=== PATIENT | female | born 1965 | race African-American/Black ===

== ENCOUNTER 2017-04-12 11:02 | Inpatient (IN) | payer OTHER ==
[2017-04-12] MEDS ORDERED: FLU VACCINE QUAD 60 MCG/0.5 ML (MDV 17-18) IM ONE (11:45)
[2017-04-12] MEDS ORDERED: hydrOXYzine PAMOATE 50 MG CAPSULE (FP) PO PRN (12:31)
[2017-04-12] MEDS ORDERED: ACETAMINOPHEN 325 MG TABLET (FP) PO PRN (12:31)
[2017-04-12] MEDS ORDERED: MAGNESIUM CITRATE 300 ML BOTTLE PO PRN (12:31)
[2017-04-12] MEDS ORDERED: MAG HYDROX/AL HYDROX/SIMETH 30 ML UNIT-DOSE CUP PO PRN (12:31)
[2017-04-12] MEDS ORDERED: IBUPROFEN 400 MG TABLET (FP) PO PRN (12:31)
[2017-04-12] MEDS ORDERED: MAGNESIUM HYDROX 2400MG/30ML ORAL SUSPENSION 30 ML CUP PO PRN (12:31)
[2017-04-12] MEDS ORDERED: P-EPHED 60MG/TRIPROLIDI 2.5MG TABLET PO PRN (12:31)
[2017-04-12] MEDS ORDERED: LOPERAMIDE HCL 2 MG CAPSULE PO PRN (12:31)
[2017-04-12] MEDS ORDERED: guaiFENesin/D-METHORPHAN HB 10 ML UNIT-DOSE CUPS PO PRN (12:31)
[2017-04-12] MEDS ORDERED: MENTHOL/PHENOL 1 EACH UD MM PRN (12:31)
[2017-04-12] MEDS ORDERED: ALBUTEROL SO4 18 GM HFA INHALER IH PRN (12:32)
--- NOTE | 2017-04-12 12:35 | HP ---
JAI SCHAEFER Rehab Assess/Revision - Admission History Admitted to Rehab from: [facility] Date of Admission to Rehab: 04/12/17 - Vital signs Vital Signs: Vital Signs Period Temp Pulse Resp BP Sys/Hdz Pulse Ox Last 24 Hr 97.4 F 77 18 114/78 - Findings Detox History & Physical reviewed: Yes Concur with findings: Yes Comments/Additional Findings: for rehab as protocol Inpatient Rehab Admission - Initial Determination Are CD services needed?: Yes Free of communicable disease: Yes Not in need of hospitalization: Yes - Rehab Admission Criteria Previous failed treatment: Yes Poor recovery environment: Yes Comorbidities: Yes Patient is meeting Inpatient Rehab admission criteria:: Yes
[2017-04-12] MEDS: BUDESONIDE/FORMETEROL FUMARATE 160/4.5 mcg INHALER IH SCH (21:45)
[2017-04-12] MEDS: diphenhydrAMINE HCL 50 MG CAPSULE PO PRN (21:45)
[2017-04-12] MEDS: THIAMINE HCL 100 MG TABLET (FP) PO SCH (21:45)
[2017-04-12] MEDS: MONTELUKAST NA 10 MG TABLET PO SCH (21:46)
[2017-04-13] MEDS ORDERED: PT OWN MED DRAWER 7, Y5N ONE ×2 (09:01→22:30)
[2017-04-13] MEDS: PRENATAL VITAMINS W/ FOLIC ACID TABLET (FP) PO SCH (10:08)
[2017-04-13] MEDS: BUDESONIDE/FORMETEROL FUMARATE 160/4.5 mcg INHALER IH SCH ×2 (10:08→21:57)
[2017-04-13 12:21] LABS: HIV 1 & 2 AB NEGATIVE; HIV 1 AGp24 NEGATIVE
[2017-04-13] MEDS ORDERED: FLU VACCINE QUAD 60 MCG/0.5 ML (MDV 17-18) IM ONE (13:45)
[2017-04-13] MEDS: MONTELUKAST NA 10 MG TABLET PO SCH (21:54)
[2017-04-13] MEDS: THIAMINE HCL 100 MG TABLET (FP) PO SCH (21:54)
[2017-04-13] MEDS: diphenhydrAMINE HCL 50 MG CAPSULE PO PRN (21:57)
[2017-04-14] MEDS ORDERED: PT OWN MED DRAWER 7, Y5N ONE (08:52)
[2017-04-14] MEDS: BUDESONIDE/FORMETEROL FUMARATE 160/4.5 mcg INHALER IH SCH ×2 (10:34→21:43)
[2017-04-14] MEDS: PRENATAL VITAMINS W/ FOLIC ACID TABLET (FP) PO SCH (10:34)
--- NOTE | 2017-04-14 11:43 | HP ---
Psychiatrist Admission - Data Date of interview: 04/14/17 Admission source: 6N Identifying data: This is the first 3E inpatient rehabilitation admission for this 51 year old single AA female mother of 22 y/o, residing with her fiance in the [place], she is unemployed and supported on food stamps. Medical History: Asthma, Anemia, and Lower back pain. Smokes cigarettes 5 a day. Psychiatric History: Patient denies history of psychiatric treatment, but states she has difficulty falling anf maintaning sleep. Physical/Sexual Abuse/Trauma History: Patient denies. Vital Signs: Vital Signs - 24 hr 04/14/17 04/14/17 04/14/17 00:30 03:30 07:14 Temperature 98.1 F Pulse Rate 64 Respiratory 18 18 18 Rate Blood Pressure 107/70 Allergies/Adverse Reactions: Allergies Allergy/AdvReac Type Severity Reaction Status Date / Time No Known Allergies Allergy Verified 04/07/17 19:06 Date of last physical exam: 04/07/17 Concur with the findings of this exam: Yes - Substance Abuse/Tx History Hx Alcohol Use: Yes ([place] ice tea daily use) Hx Substance Use: Yes (first use of heroin at age of 22,started using in daily base at age 29 ) Substance Use Type: Heroin (3-4 bags daily) Hx Substance Use Treatment: Yes (detox, first rehab.) Mental Status Exam - Mental Status Exam Alert and Oriented to: Time, Place, Person Cognitive Function: Grossly Intact Patient Appearance: Well Groomed Mood: Hopeful Affect: Appropriate, Mood Congruent Patient Behavior: Appropriate, Cooperative Speech Pattern: Clear, Appropriate Voice Loudness: Normal Thought Process: Intact, Goal Oriented Thought Disorder: Not Present Hallucinations: Denies Suicidal Ideation: Denies Homicidal Ideation: Denies Insight/Judgement: Fair Sleep: Poorly, Difficulty falling asleep Appetite: Fair Muscle strength/Tone: Normal Psychiatric Findings - Problem List ([place] 1, 2,3) (1) Substance-induced sleep disorder Current Visit: Yes Status: Acute (2) Alcohol dependence Current Visit: No Status: Active (3) Opioid dependence Current Visit: No Status: Active (4) Anemia Current Visit: No Status: Chronic (5) Asthma Current Visit: No Status: Chronic (6) Nicotine dependence Current Visit: No Status: Chronic Qualifiers: Nicotine product type: cigarettes Substance use status: uncomplicated Qualified Code(s): F17.210 - Nicotine dependence, cigarettes, uncomplicated - Initial Treatment Plan Initial Treatment Plan: Recommended Benadryl for insomnia, patient reported that not effective, discussed indications and p[facility], patient agreed to start, will add medication and continue to monitor progress.
[2017-04-14] MEDS: SUVOREXANT 10 MG TABLET PO SCH (21:43)
[2017-04-14] MEDS: MONTELUKAST NA 10 MG TABLET PO SCH (21:43)
[2017-04-14] MEDS: THIAMINE HCL 100 MG TABLET (FP) PO SCH (21:43)
[2017-04-15] MEDS: BUDESONIDE/FORMETEROL FUMARATE 160/4.5 mcg INHALER IH SCH ×2 (10:33→21:47)
[2017-04-15] MEDS: PRENATAL VITAMINS W/ FOLIC ACID TABLET (FP) PO SCH (10:33)
[2017-04-15] MEDS: THIAMINE HCL 100 MG TABLET (FP) PO SCH (21:46)
[2017-04-15] MEDS: MONTELUKAST NA 10 MG TABLET PO SCH (21:47)
[2017-04-15] MEDS: SUVOREXANT 10 MG TABLET PO SCH (21:47)
[2017-04-16] MEDS ORDERED: ALBUTEROL SO4 2.5/IPRATROPIUM 0.5 INH SOL 3 ML VIAL.NEB. NEB PRN (09:13)
[2017-04-16] MEDS: PRENATAL VITAMINS W/ FOLIC ACID TABLET (FP) PO SCH (10:50)
[2017-04-16] MEDS: BUDESONIDE/FORMETEROL FUMARATE 160/4.5 mcg INHALER IH SCH ×2 (10:51→21:52)
[2017-04-16] MEDS: THIAMINE HCL 100 MG TABLET (FP) PO SCH (21:51)
[2017-04-16] MEDS: MONTELUKAST NA 10 MG TABLET PO SCH (21:51)
[2017-04-16] MEDS: SUVOREXANT 10 MG TABLET PO SCH (21:52)
[2017-04-17] MEDS: PRENATAL VITAMINS W/ FOLIC ACID TABLET (FP) PO SCH (10:17)
[2017-04-17] MEDS: BUDESONIDE/FORMETEROL FUMARATE 160/4.5 mcg INHALER IH SCH ×2 (10:17→21:57)
[2017-04-17] MEDS: THIAMINE HCL 100 MG TABLET (FP) PO SCH (21:56)
[2017-04-17] MEDS: MONTELUKAST NA 10 MG TABLET PO SCH (21:56)
[2017-04-17] MEDS: SUVOREXANT 10 MG TABLET PO SCH (21:57)
[2017-04-18] MEDS: BUDESONIDE/FORMETEROL FUMARATE 160/4.5 mcg INHALER IH SCH ×2 (10:49→21:52)
[2017-04-18] MEDS: PRENATAL VITAMINS W/ FOLIC ACID TABLET (FP) PO SCH (10:49)
[2017-04-18] MEDS: THIAMINE HCL 100 MG TABLET (FP) PO SCH (21:51)
[2017-04-18] MEDS: MONTELUKAST NA 10 MG TABLET PO SCH (21:51)
[2017-04-18] MEDS: SUVOREXANT 10 MG TABLET PO SCH (21:52)
[2017-04-19] MEDS: PRENATAL VITAMINS W/ FOLIC ACID TABLET (FP) PO SCH (10:05)
[2017-04-19] MEDS: BUDESONIDE/FORMETEROL FUMARATE 160/4.5 mcg INHALER IH SCH ×2 (10:05→21:43)
[2017-04-19] MEDS: MONTELUKAST NA 10 MG TABLET PO SCH (21:44)
[2017-04-19] MEDS: SUVOREXANT 10 MG TABLET PO SCH (21:44)
[2017-04-19] MEDS: THIAMINE HCL 100 MG TABLET (FP) PO SCH (21:44)
[2017-04-20] MEDS: diphenhydrAMINE HCL 50 MG CAPSULE PO PRN (01:38)
[2017-04-20] MEDS: PRENATAL VITAMINS W/ FOLIC ACID TABLET (FP) PO SCH (09:56)
[2017-04-20] MEDS: BUDESONIDE/FORMETEROL FUMARATE 160/4.5 mcg INHALER IH SCH ×2 (09:56→21:43)
[2017-04-20] MEDS: MONTELUKAST NA 10 MG TABLET PO SCH (21:43)
[2017-04-20] MEDS: THIAMINE HCL 100 MG TABLET (FP) PO SCH (21:43)
[2017-04-20] MEDS: SUVOREXANT 10 MG TABLET PO SCH (21:43)
[2017-04-21] MEDS: diphenhydrAMINE HCL 50 MG CAPSULE PO PRN (00:52)
[2017-04-21] MEDS: BUDESONIDE/FORMETEROL FUMARATE 160/4.5 mcg INHALER IH SCH ×2 (10:38→21:35)
[2017-04-21] MEDS: PRENATAL VITAMINS W/ FOLIC ACID TABLET (FP) PO SCH (10:38)
[2017-04-21] MEDS: MONTELUKAST NA 10 MG TABLET PO SCH (21:35)
[2017-04-21] MEDS: QUEtiapine FUMARATE 50 MG TABLET PO SCH (21:35)
[2017-04-21] MEDS: THIAMINE HCL 100 MG TABLET (FP) PO SCH (21:35)
[2017-04-22] MEDS: BUDESONIDE/FORMETEROL FUMARATE 160/4.5 mcg INHALER IH SCH ×2 (10:25→21:02)
[2017-04-22] MEDS: PRENATAL VITAMINS W/ FOLIC ACID TABLET (FP) PO SCH (10:25)
[2017-04-22] MEDS: MONTELUKAST NA 10 MG TABLET PO SCH (21:00)
[2017-04-22] MEDS: THIAMINE HCL 100 MG TABLET (FP) PO SCH (21:00)
[2017-04-22] MEDS: QUEtiapine FUMARATE 50 MG TABLET PO SCH (21:02)
[2017-04-22] MEDS ORDERED: PT OWN MED DRAWER 7, Y5N ONE (21:03)
[2017-04-23] MEDS: diphenhydrAMINE HCL 50 MG CAPSULE PO PRN (01:00)
[2017-04-23 07:19] VITALS: BP 120/79; PULSE 70; TEMP 98.2
[2017-04-23] MEDS: BUDESONIDE/FORMETEROL FUMARATE 160/4.5 mcg INHALER IH SCH (09:58)
[2017-04-23] MEDS: PRENATAL VITAMINS W/ FOLIC ACID TABLET (FP) PO SCH (09:58)
--- NOTE | 2017-04-23 10:00 | PN ---
Psychiatric Progress Note Vital Signs: Vital Signs Period Temp Pulse Resp BP Sys/Hdz Pulse Ox Last 24 Hr 98.2 F 70 18 120/79 Date of Session: 04/23/17 Chief Complaint:: Discharge visit HPI: Alcohol,Cocaine and Opioid dependence comorbid with Substance induced mood/ sleep disorder. ROS: Significant for Anemia,BA. Current Medications: Active Medications Generic Name Dose Route Start Last Admin Trade Name Freq PRN Reason Stop Dose Admin Acetaminophen 650 mg 04/12/17 12:31 Tylenol - PO Q4H PRN FEVER OR PAIN Al Hydroxide/Mg Hydroxide 30 ml 04/12/17 12:31 Mylanta Oral Suspension - PO Q6H PRN DYSPEPSIA Albuterol Sulfate 2 puff 04/12/17 12:32 04/16/17 09:08 Ventolin Hfa Inhaler - IH 2 puff Q4H PRN Administration ASTHMA Budesonide/Formoterol Fumarate 2 puff 04/12/17 22:00 04/22/17 21:02 Symbicort 160/4.5mcg - IH 2 inhaler BID RADHA Administration Diphenhydramine HCl 50 mg 04/12/17 15:40 04/23/17 01:00 Benadryl - PO 50 mg HS PRN Administration INSOMNIA Eucalyptus/Menthol/Phenol/Sorbitol 1 each 04/12/17 12:31 Cepastat Lozenge - MM Q4H PRN SORE THROAT Guaifenesin 10 ml 04/12/17 12:31 Robitussin Dm - PO Q6H PRN COUGH Hydroxyzine Pamoate 50 mg 04/12/17 12:31 04/22/17 21:01 Vistaril - PO 50 mg Q4H PRN Administration AGITATION Ibuprofen 400 mg 04/12/17 12:31 Motrin - PO Q6H PRN PAIN Loperamide HCl 4 mg 04/12/17 12:31 Imodium - PO Q6H PRN DIARRHEA Magnesium Citrate 300 ml 04/12/17 12:31 Citroma - PO Q48H PRN CONSTIPATION Magnesium Hydroxide 30 ml 04/12/17 12:31 Milk Of Magnesia - PO DAILY PRN CONSTIPATION Montelukast Sodium 10 mg 04/12/17 22:00 04/22/17 21:00 Singulair - PO 10 mg HS RADHA Administration Multivit/Folic Acid/Iron 1 tab 04/13/17 10:00 04/22/17 10:25 Vitamins (Sjr) - PO 1 tab DAILY RADHA Administration Pseudoephedrine/Triprolidine 1 combo 04/12/17 12:31 Actifed - PO TID PRN NASAL CONGESTION Thiamine HCl 100 mg 04/12/17 22:00 04/22/17 21:00 Vitamin B1 - PO 100 mg HS RADHA Administration Current Side Effect: No Lab tests ordered: No Lab tests reviewed: Yes Provider note:: Patient completed this program today.She has met her treatment goals and will continue to address her issues on outpatient basis at [facility] .Patient was started on Seroquel 50 mg po hs for sleeping difficulties and mood stabilization,but has been discontinued due to side effects(restless leg syndrome and sleep apnea). Supportive therapy provided focusing on relapse prevention including discussion of coping skills and support system utilization to maintain recovery. Patient is stable for discharge today. Total face to face time:: 30 Mental Status Exam - Mental Status Exam Alert and Oriented to: Time, Place, Person Cognitive Function: Grossly Intact Patient Appearance: Well Groomed Mood: Euthymic Affect: Mood Congruent Patient Behavior: Cooperative Speech Pattern: Clear Voice Loudness: Normal Thought Process: Goal Oriented Thought Disorder: Not Present Hallucinations: Denies Suicidal Ideation: Denies Homicidal Ideation: Denies Insight/Judgement: Fair Sleep: Fair Appetite: Good Muscle strength/Tone: Normal Gait/Station: Normal Psychiatric Treatment Plan - Problem List (1) Substance-induced sleep disorder Current Visit: Yes (2) Alcohol dependence Current Visit: Yes (3) Opioid dependence Current Visit: Yes (4) Anemia Current Visit: Yes (5) Asthma Current Visit: Yes (6) Cocaine dependence Current Visit: Yes
== END 2017-04-23 10:13 | disposition home or self-care (01) | DRG 772 ==
LOC: YASAS 11:02 → Y3E 11:12
PROVIDERS: ADMIT Psychiatry & Neurology Psychiatry; ATTEND Psychiatry & Neurology Psychiatry
PROC: HZ42ZZZ Group Counseling for Substance Abuse Treatment, Cognitive-Behavioral (ICD-10-PCS; principal; 2017-04-12)
DX: F11.20 Opioid dependence, uncomplicated (principal); F10.20 Alcohol dependence, uncomplicated; F17.210 Nicotine dependence, cigarettes, uncomplicated; F19.282 Other psychoactive substance dependence with psychoactive substance-induced sleep disorder; J45.909 Unspecified asthma, uncomplicated; D64.9 Anemia, unspecified
CPT/HCPCS: 36415; 87389; 90688; 94640; G0008

== ENCOUNTER 2017-09-27 12:05 | Inpatient (IN) | payer OTHER ==
[2017-09-27 12:42] VITALS: BMI 32.1
--- NOTE | 2017-09-27 12:56 | HP ---
COWS - Scale Resting Pulse: 0= [place] 80 or Below Sweatin= No chills or Flushing Restless Observation: 1= Difficult to Sit Still Pupil Size: 0= Normal to Room Light Bone or Joint Aches: 2= Severe Diffuse Aches Runny Nose/ Eye Tearin= Runny Nose/Eyes GI Upset > 30mins: 2= Nausea/Diarrhea Tremor Observation: 1= Tremor [place], Not Seen Yawning Observation: 1= 1-2x During Session Anxiety or Irritability: 1=Feels Anxious/Irritable Goose Flesh Skin: 0=Smooth Skin COWS Score: 10 CIWA Score - CIWA Score Nausea/Vomitin-Mild Nausea/No Vomiting Muscle Tremors: 4-Moderate,w/Arms Extend Anxiety: 4-Mod. Anxious/Guarded Agitation: 1-Slight > Activity Paroxysmal Sweats: 1-Minimal Palms Moist Orientation: 0-Oriented Tacttile Disturbances: 0-None Auditory Disturbances: 1-Very Mild Visual Disturbances: 1-Very Mild Sensitivity Headache: 2-Mild CIWA-Ar Total Score: 15 Admission ROS BHS - HPI Chief Complaint: I just can't stop, it's not easy when you've been using so long, it becomes part of you and I have to stop, I have a good job now and I want my life back. I lost my home, my care, my money, everything and I want it back. Allergies/Adverse Reactions: Allergies Allergy/AdvReac Type Severity Reaction Status Date / Time No Known Allergies Allergy Verified 04/07/17 19:06 History of Present Illness: 52 yo woman here for detox from heroin and alcohol - no seizures, no black outs , last time here in April 2017 but did not f/u with aftercare. Although urine tox + methadone and + benzo- denies using either, states mixed with heroin. Exam Limitations: Clinical Condition - Ebola screening Have you traveled outside of the country in the last 21 days: No (N) Have you had contact with anyone from an Ebola affected area: No Have you been sick,other than usual withdrawal symptoms: No Do you have a fever: No - Review of Systems Constitutional: Loss of Appetite, Malaise, Changes in sleep EENT: reports: Blurred Vision, Nose Congestion Respiratory: reports: No Symptoms reported Cardiac: reports: No Symptoms Reported GI: reports: Nausea, Poor Appetite : reports: Dysuria Musculoskeletal: reports: Back Pain, Muscle Pain Neuro: reports: Headache, Tremors Endocrine: reports: No Symptoms Reported Hematology: reports: No Symptoms Reported Psychiatric: reports: Judgement Intact, Mood/Affect Appropiate, Orientated x3, Anxious Other Systems: Reviewed and Negative Patient History - Patient Medical History Hx Anemia: Yes Hx Asthma: Yes Hx Chronic Obstructive Pulmonary Disease (COPD): No Hx Cancer: No Hx Cardiac Disorders: No Hx Congestive Heart Failure: No Hx Hypertension: No Hx Hypercholesterolemia: No Hx Pacemaker: No HX Cerebrovascular Accident: No Hx Seizures: No Hx Dementia: No Hx Diabetes: No Hx Gastrointestinal Disorders: No Hx Liver Disease: No Hx Genitourinary Disorders: No Hx Sexually Transmitted Disorders: No Hx Renal Disease (ESRD): No Hx Thyroid Disease: No Hx Human Immunodeficiency Virus (HIV): No (Negative 2016) Hx Hepatitis C: No (Negative 2016) Hx Depression: No Hx Suicide Attempt: No Hx Bipolar Disorder: No Hx Schizophrenia: No - Patient Surgical History Past Surgical History: No Hx Neurologic Surgery: No Hx Cataract Extraction: No Hx Cardiac Surgery: No Hx Lung Surgery: No Hx Breast Surgery: No Hx Breast Biopsy: No Hx Abdominal Surgery: No Hx Appendectomy: No Hx Cholecystectomy: No Hx Genitourinary Surgery: No Hx Section: Yes (in 1994) Hx Orthopedic Surgery: No Hx Hysterectomy: No Other Surgical History: left eye surgery for amblyopia 2012 Anesthesia Reaction: No - PPD History Previous Implant?: Yes Documented Results: Negative w/proof Implanted On Prior [facility] Admission?: Yes Date: 04/09/17 Results: 0mm PPD to be Administered?: No - Reproductive History Patient is a Female of Child Bearing Age (11 -55 yrs old): Yes Last Menstrual Period: 08/08/14 - Smoking Cessation Smoking history: Current every day smoker Have you smoked in the past 12 months: Yes Aproximately how many cigarettes per day: 5 Cigars Per Day: 0 Hx Chewing Tobacco Use: No Initiated information on smoking cessation: Yes 'Breaking Loose' booklet given: 09/27/17 (give on floor) - Substance & Tx. History Hx Alcohol Use: Yes Hx Substance Use: Yes Substance Use Type: Alcohol, Cocaine, Heroin Hx Substance Use Treatment: Yes (detox, rehab) - Substances Abused heroin Route: Inhalation Frequency: Daily Amount used: 1 bundle Age of first use: 22 Date of Last Use: 09/27/17 alcohol Route: Oral Frequency: Daily Amount used: seven cans sixteen oz beer; 1/2 pint [place] iced tea Age of first use: 29 Date of Last Use: 09/27/17 cocaine Route: Inhalation Frequency: 1-2 times per week Amount used: $100 Age of first use: 31 Date of Last Use: 09/22/17 Family Disease History - Family Disease History Family Disease History: Other: Father ( - AIDS - hx IVDU), Mother ( living - healthy), Brother (three - healthy), Sister (two - healthy), Daughter ( one age 22 - healthy) Admission Physical Exam [facility] - Vital Signs Vital Signs: Vital Signs - 24 hr 09/27/17 12:39 Temperature 97.5 F L Pulse Rate 72 Respiratory 18 Rate Blood Pressure 142/88 - Physical General Appearance: Yes: Nourished, Appropriately Dressed, Moderate Distress, Anxious HEENTM: Yes: EOMI, Hearing grossly Normal, Normocephalic, Normal Voice Respiratory: Yes: Normal Breath Sounds, No Respiratory Distress Neck: Yes: No masses,lesions,Nodules, Supple Breast: Yes: Breast Exam Deferred Cardiology: Yes: Regular Rhythm, Regular Rate Abdominal: Yes: Non Tender, Flat, Soft Genitourinary: Yes: Frequency Back: Yes: Normal Inspection Musculoskeletal: Yes: full range of Motion, Gait Steady Neurological: Yes: Fully Oriented, Alert, Normal Mood/Affect, Normal Response Integumentary: Yes: Normal Color, Warm Lymphatic: Yes: Within Normal Limits - Diagnostic (1) Opioid dependence with withdrawal Current Visit: Yes Status: Chronic (2) Alcohol dependence with uncomplicated withdrawal Current Visit: Yes Status: Chronic (3) Asthma Current Visit: Yes Status: Chronic (4) Cocaine dependence Current Visit: Yes Status: Chronic (5) Nicotine dependence Current Visit: Yes Status: Chronic Qualifiers: Nicotine product type: cigarettes Substance use status: uncomplicated Qualified Code(s): F17.210 - Nicotine dependence, cigarettes, uncomplicated Cleared for Admission [facility] - Detox or Rehab [facility] Level of Care: Medically Managed Detox Regimen/Protocol: Methadone/Librium [facility] Breath Alcohol Content Breath Alcohol Content: 0.26 Urine Pregancy Test - Result Urine Test Results: Negative- NO Line Present Urine Drug Screen - Results Drug Screen Negative: No Urine Drug Screen Results: HANNAH-Cocaine, OPI-Opiates, BZO-Benzodiazepines, MTD- Methadone
[2017-09-27] MEDS ORDERED: LOPERAMIDE HCL 2 MG CAPSULE PO PRN (13:05)
[2017-09-27] MEDS ORDERED: guaiFENesin/D-METHORPHAN HB 10 ML UNIT-DOSE CUPS PO PRN (13:05)
[2017-09-27] MEDS ORDERED: MAGNESIUM CITRATE 300 ML BOTTLE PO PRN (13:05)
[2017-09-27] MEDS ORDERED: MENTHOL/PHENOL 1 EACH UD MM PRN (13:05)
[2017-09-27] MEDS ORDERED: hydrOXYzine PAMOATE 25 MG CAPSULE (FP) PO PRN (13:05)
[2017-09-27] MEDS ORDERED: chlordiazePOXIDE HCL 25 MG CAPSULE PO PRN (13:05)
[2017-09-27] MEDS ORDERED: MAG HYDROX/AL HYDROX/SIMETH 30 ML UNIT-DOSE CUP PO PRN (13:05)
[2017-09-27] MEDS ORDERED: P-EPHED 60MG/TRIPROLIDI 2.5MG TABLET PO PRN (13:05)
[2017-09-27] MEDS ORDERED: ACETAMINOPHEN 325 MG TABLET (FP) PO PRN (13:05)
[2017-09-27] MEDS ORDERED: IBUPROFEN 400 MG TABLET (FP) PO PRN (13:05)
[2017-09-27] MEDS ORDERED: ALBUTEROL SO4 18 GM HFA INHALER IH PRN (13:07)
[2017-09-27] MEDS ORDERED: chlordiazePOXIDE HCL 25 MG CAPSULE PO ONE (14:30)
[2017-09-27] MEDS ORDERED: METHADONE HCL 10 MG TABLET (FOR DETOX USE ONLY) PO ONE ×2 (14:30→23:00)
[2017-09-27] MEDS: chlordiazePOXIDE HCL 25 MG CAPSULE PO SCH ×2 (17:21→22:51)
[2017-09-27 18:15] LABS: URINE APPEARANCE TURBID; URINE BILIRUBIN NEGATIVE (<2.0 mg/dL); URINE BLOOD NEGATIVE (NEGATIVE); URINE COLOR AMBER; URINE GLUCOSE (UA) NEGATIVE (NEGATIVE); URINE KETONE NEGATIVE (NEGATIVE); URINE LEUK ESTERASE NEGATIVE (NEGATIVE); URINE NITRITE NEGATIVE (NEGATIVE); URINE PROTEIN NEGATIVE (NEGATIVE); URINE UROBILINOGEN NEGATIVE mg/dL (0.2-1.0)
[2017-09-27] MEDS: MONTELUKAST NA 10 MG TABLET PO SCH (22:52)
[2017-09-27] MEDS: THIAMINE HCL 100 MG TABLET (FP) PO SCH (22:52)
[2017-09-27] MEDS: BUDESONIDE/FORMETEROL FUMARATE 160/4.5 mcg INHALER IH SCH (22:53)
[2017-09-28] MEDS: chlordiazePOXIDE HCL 25 MG CAPSULE PO SCH ×4 (05:54→22:16)
[2017-09-28] MEDS ORDERED: METHADONE HCL 10 MG TABLET (FOR DETOX USE ONLY) PO SCH (10:00)
--- NOTE | 2017-09-28 10:00 | PN ---
[facility] CIWA - CIWA Score Nausea/Vomitin-No Nausea/No Vomiting Muscle Tremors: 3 Anxiety: 3 Agitation: 3 Paroxysmal Sweats: 2 Orientation: 0-Oriented Tacttile Disturbances: 0-None Auditory Disturbances: 0-None Visual Disturbances: 0-None Headache: 0-None Present CIWA-Ar Total Score: 11 S COWS - Scale Resting Pulse: 0= [place] 80 or Below Sweatin=Flushed/Facial Moisture Restless Observation: 1= Difficult to Sit Still Pupil Size: 0= Normal to Room Light Bone or Joint Aches: 2= Severe Diffuse Aches Runny Nose/ Eye Tearin= Runny Nose/Eyes GI Upset > 30mins: 0= None Tremor Observation of Outstretched Hands: 1= Tremor [place], Not Seen Yawning Observation: 1= 1-2x During Session Anxiety or Irritability: 2=Irritable/Anxious Goose Flesh Skin: 0=Smooth Skin COWS Score: 11 [facility] Progress Note (SOAP) Subjective: irritable sweats shakes interrupted sleep anxiety body aches Objective: 09/28/17 10:00 Vital Signs Temperature 98.4 F 09/28/17 07:09 Pulse Rate 86 09/28/17 07:09 Respiratory Rate 18 09/28/17 07:09 Blood Pressure 131/82 09/28/17 07:09 O2 Sat by Pulse Oximetry (%) Laboratory Tests 09/27/17 16:00 Urine Color Rita Urine Appearance Turbid Urine pH 5.0 Ur Specific [place] 1.023 Urine Protein Negative Urine Glucose (UA) Negative Urine Ketones Negative Urine Blood Negative Urine Nitrite Negative Urine Bilirubin Negative Urine Urobilinogen Negative Ur Leukocyte Esterase Negative labs pending aaox3 ambulating no acute distress Assessment: 09/28/17 10:00 withdrawal sx Plan: continue detox increase fluids labs pending
[2017-09-28] MEDS: PRENATAL VITAMINS W/ FOLIC ACID TABLET (FP) PO SCH (10:20)
[2017-09-28] MEDS: BUDESONIDE/FORMETEROL FUMARATE 160/4.5 mcg INHALER IH SCH ×2 (10:21→22:15)
--- NOTE | 2017-09-28 10:47 | EKG ---
Test Reason : Blood Pressure : / mmHG Vent. Rate : 067 BPM Atrial Rate : 067 BPM P-R Int : 214 ms QRS Dur : 082 ms QT Int : 394 ms P-R-T Axes : 067 051 044 degrees QTc Int : 416 ms SINUS RHYTHM WITH 1ST DEGREE A-V BLOCK SEPTAL INFARCT , AGE UNDETERMINED ABNORMAL ECG WHEN COMPARED WITH ECG OF 07-APR-2017 23:13, SEPTAL INFARCT IS NOW PRESENT Confirmed by ROLDAN SCHAEFER, JOSS ([id number]) on 09/28/2017 10:47:12 AM Referred By: Confirmed By:JOSS MONTILLA MD
[2017-09-28 11:22] LABS: HEMATOCRIT 33.2 % (32.4-45.2); HEMOGLOBIN 10.6 GM/dL (10.7-15.3); MCH 23.7 pg (25.7-33.7); MCHC 31.8 g/dl (32.0-36.0); MEAN CELL VOLUME 74.4 fl (80-96); MEAN PLT VOLUME 10.2 fl (7.5-11.1); PLATELET COUNT 225 K/MM3 (134-434); RBC 4.46 M/mm3 (3.60-5.2); RDW 14.4 % (11.6-15.6); WHITE BLOOD COUNT 4.5 K/mm3 (4.0-10.0)
[2017-09-28 11:30] LABS: ALBUMIN 3.7 g/dl (3.4-5.0); ANION GAP 5 (8-16); BLOOD UREA NITROGEN 13 mg/dL (7-18); CALCIUM 9.1 mg/dL (8.5-10.1); CHLORIDE 106 mmol/L (98-107); CO2 30 mmol/L (21-32); GLUCOSE,RANDOM 72 mg/dL (74-106); POTASSIUM 4.1 mmol/L (3.5-5.1); SODIUM 141 mmol/L (136-145)
[2017-09-28 11:34] LABS: ALK PHOS 81 U/L (45-117); BILIRUBIN,TOTAL 0.4 mg/dL (0.2-1.0); CREATININE 0.9 mg/dL (0.55-1.02); SGOT/AST 20 U/L (15-37); SGPT/ALT 17 U/L (12-78); TOT PROT 7.1 g/dl (6.4-8.2)
[2017-09-28] MEDS: MONTELUKAST NA 10 MG TABLET PO SCH (22:16)
[2017-09-28] MEDS: THIAMINE HCL 100 MG TABLET (FP) PO SCH (22:16)
[2017-09-29] MEDS: chlordiazePOXIDE HCL 25 MG CAPSULE PO SCH ×2 (05:20→10:40)
[2017-09-29] MEDS: PRENATAL VITAMINS W/ FOLIC ACID TABLET (FP) PO SCH (10:40)
[2017-09-29] MEDS: METHADONE HCL 5 MG TABLET (FOR DETOX USE ONLY) PO SCH (10:40)
[2017-09-29] MEDS: BUDESONIDE/FORMETEROL FUMARATE 160/4.5 mcg INHALER IH SCH ×2 (10:41→22:30)
--- NOTE | 2017-09-29 11:00 | PN ---
[facility] CIWA - CIWA Score Nausea/Vomitin Muscle Tremors: 3 Anxiety: 3 Agitation: 3 Paroxysmal Sweats: 1-Minimal Palms Moist Orientation: 0-Oriented Tacttile Disturbances: 1-Very Mild Itch/Numbness Auditory Disturbances: 1-Very Mild Visual Disturbances: 0-None Headache: 2-Mild CIWA-Ar Total Score: 17 [facility]HS COWS - Scale Resting Pulse: 0= [place] 80 or Below Sweatin= Chills/Flushing Restless Observation: 3= Extraneous Movement Pupil Size: 1= Pupils >than Normal Bone or Joint Aches: 2= Severe Diffuse Aches Runny Nose/ Eye Tearin= Runny Nose/Eyes GI Upset > 30mins: 2= Nausea/Diarrhea Tremor Observation of Outstretched Hands: 2= Slight Tremor Visible Yawning Observation: 1= 1-2x During Session Anxiety or Irritability: 2=Irritable/Anxious Goose Flesh Skin: 0=Smooth Skin COWS Score: 16 S Progress Note (SOAP) Subjective: ALERT,IRRITABLE,ANXIOUS,INTERRUPTED SLEEP,PAIN IN THE BODY AND BACK, HISTORY OF ALOPECIA Objective: 09/29/17 10:55 Vital Signs Temperature 97.3 F L 09/29/17 09:51 Pulse Rate 68 09/29/17 09:51 Respiratory Rate 16 09/29/17 09:51 Blood Pressure 103/68 09/29/17 09:51 O2 Sat by Pulse Oximetry (%) 09/29/17 10:55 Laboratory Last Values WBC 4.5 K/mm3 (4.0-10.0) 09/28/17 08:00 RBC 4.46 M/mm3 (3.60-5.2) 09/28/17 08:00 Hgb 10.6 GM/dL (10.7-15.3) L 09/28/17 08:00 Hct 33.2 % (32.4-45.2) 09/28/17 08:00 MCV 74.4 fl (80-96) L 09/28/17 08:00 MCH 23.7 pg (25.7-33.7) L 09/28/17 08:00 MCHC 31.8 g/dl (32.0-36.0) L 09/28/17 08:00 RDW 14.4 % (11.6-15.6) 09/28/17 08:00 Plt Count 225 K/MM3 (134-434) 09/28/17 08:00 MPV 10.2 fl (7.5-11.1) 09/28/17 08:00 Sodium 141 mmol/L (136-145) 09/28/17 08:00 Potassium 4.1 mmol/L (3.5-5.1) 09/28/17 08:00 Chloride 106 mmol/L (98-107) 09/28/17 08:00 Carbon Dioxide 30 mmol/L (21-32) 09/28/17 08:00 Anion Gap 5 (8-16) L 09/28/17 08:00 BUN 13 mg/dL (7-18) 09/28/17 08:00 Creatinine 0.9 mg/dL (0.55-1.02) 09/28/17 08:00 Creat Clearance w eGFR > 60 (>60) 09/28/17 08:00 Random Glucose 72 mg/dL (74-106) L 09/28/17 08:00 Calcium 9.1 mg/dL (8.5-10.1) 09/28/17 08:00 Total Bilirubin 0.4 mg/dL (0.2-1.0) D 09/28/17 08:00 AST 20 U/L (15-37) 09/28/17 08:00 ALT 17 U/L (12-78) 09/28/17 08:00 Alkaline Phosphatase 81 U/L (45-117) 09/28/17 08:00 Total Protein 7.1 g/dl (6.4-8.2) 09/28/17 08:00 Albumin 3.7 g/dl (3.4-5.0) 09/28/17 08:00 Urine Color Rita 09/27/17 16:00 Urine Appearance Turbid 09/27/17 16:00 Urine pH 5.0 (5.0-8.0) 09/27/17 16:00 Ur Specific [place] 1.023 (1.001-1.035) 09/27/17 16:00 Urine Protein Negative (NEGATIVE) 09/27/17 16:00 Urine Glucose (UA) Negative (NEGATIVE) 09/27/17 16:00 Urine Ketones Negative (NEGATIVE) 09/27/17 16:00 Urine Blood Negative (NEGATIVE) 09/27/17 16:00 Urine Nitrite Negative (NEGATIVE) 09/27/17 16:00 Urine Bilirubin Negative (<2.0 mg/dL) 09/27/17 16:00 Urine Urobilinogen Negative mg/dL (0.2-1.0) 09/27/17 16:00 Ur Leukocyte Esterase Negative (NEGATIVE) 09/27/17 16:00 RPR Titer Nonreactive (NONREACTIVE) 09/28/17 08:00 HIV 1&2 Antibody Screen Negative 09/28/17 08:00 HIV P24 Antigen Negative 09/28/17 08:00 Assessment: 09/29/17 10:56 WITHDRAWAL SYMPTOM Plan: CONTINUED DETOX,HISTORY OF ALOPECIA USING jAM CONDITION AND SHINE GEL,EXTRA HOLD DAILY VERIFIED BY PHARMACIST
[2017-09-29] MEDS: NON-FORMULARY MED TP SCH (14:04)
[2017-09-29] MEDS: MAGNESIUM HYDROX 2400MG/30ML ORAL SUSPENSION 30 ML CUP PO PRN (15:16)
[2017-09-29] MEDS: chlordiazePOXIDE 5 MG CAPSULE PO SCH ×2 (17:36→22:30)
[2017-09-29] MEDS: MONTELUKAST NA 10 MG TABLET PO SCH (22:30)
[2017-09-29] MEDS: THIAMINE HCL 100 MG TABLET (FP) PO SCH (22:30)
[2017-09-29] MEDS: MELATONIN 5 MG TABLETS PO PRN (22:33)
[2017-09-30] MEDS: chlordiazePOXIDE 5 MG CAPSULE PO SCH ×2 (05:45→10:32)
[2017-09-30] MEDS: PRENATAL VITAMINS W/ FOLIC ACID TABLET (FP) PO SCH (10:31)
[2017-09-30] MEDS: METHADONE HCL 5 MG TABLET (FOR DETOX USE ONLY) PO SCH (10:32)
[2017-09-30] MEDS: BUDESONIDE/FORMETEROL FUMARATE 160/4.5 mcg INHALER IH SCH ×2 (10:33→22:24)
[2017-09-30] MEDS: NON-FORMULARY MED TP SCH (10:37)
--- NOTE | 2017-09-30 11:17 | PN ---
[facility] Progress Note (SOAP) Subjective: ALERT,IRRITABLE,ANXIOUS,INTERRUPTED SLEEP Objective: 09/30/17 11:15 Vital Signs Temperature 97.7 F 09/30/17 10:29 Pulse Rate 73 09/30/17 10:29 Respiratory Rate 18 09/30/17 10:29 Blood Pressure 93/60 09/30/17 10:29 O2 Sat by Pulse Oximetry (%) Assessment: 09/30/17 11:15 WITHDRAWAL SYMPTOM Plan: CONTINUE DETOX
[2017-09-30] MEDS: chlordiazePOXIDE HCL 10 MG CAPSULE PO SCH ×2 (18:08→22:21)
[2017-09-30] MEDS: MAGNESIUM HYDROX 2400MG/30ML ORAL SUSPENSION 30 ML CUP PO PRN (19:22)
[2017-09-30] MEDS: THIAMINE HCL 100 MG TABLET (FP) PO SCH (22:21)
[2017-09-30] MEDS: MONTELUKAST NA 10 MG TABLET PO SCH (22:21)
[2017-09-30] MEDS: MELATONIN 5 MG TABLETS PO PRN (22:22)
[2017-10-01] MEDS: chlordiazePOXIDE HCL 10 MG CAPSULE PO SCH ×2 (05:41→10:36)
--- NOTE | 2017-10-01 09:48 | PN ---
S Progress Note (SOAP) Subjective: ALERT,IRRITABLE,ANXIOUS,INTERRUPTED SLEEP Objective: 10/01/17 09:46 Vital Signs Temperature 97.7 F 10/01/17 09:20 Pulse Rate 68 10/01/17 09:20 Respiratory Rate 20 10/01/17 09:20 Blood Pressure 112/69 10/01/17 09:20 O2 Sat by Pulse Oximetry (%) Assessment: 10/01/17 09:47 WITHDRAWAL SYMPTOM Plan: CONTINUE DETOX,DISCHARGE IN AM
[2017-10-01] MEDS ORDERED: METHADONE HCL 10 MG TABLET (FOR DETOX USE ONLY) PO SCH (10:00)
[2017-10-01] MEDS: PRENATAL VITAMINS W/ FOLIC ACID TABLET (FP) PO SCH (10:36)
[2017-10-01] MEDS: BUDESONIDE/FORMETEROL FUMARATE 160/4.5 mcg INHALER IH SCH ×2 (10:38→21:10)
[2017-10-01] MEDS: NON-FORMULARY MED TP SCH (10:38)
[2017-10-01] MEDS: THIAMINE HCL 100 MG TABLET (FP) PO SCH (21:10)
[2017-10-01] MEDS: MONTELUKAST NA 10 MG TABLET PO SCH (21:10)
[2017-10-01] MEDS: MELATONIN 5 MG TABLETS PO PRN (21:12)
[2017-10-02] MEDS ORDERED: METHADONE HCL 5 MG TABLET (FOR DETOX USE ONLY) PO SCH (06:00)
--- NOTE | 2017-10-02 07:52 | PN ---
S Progress Note (SOAP) Subjective: ALERT,NO COMPLAINT Objective: 10/02/17 07:51 Vital Signs Temperature 97 F L 10/02/17 04:00 Pulse Rate 58 L 10/02/17 04:00 Respiratory Rate 18 10/02/17 04:00 Blood Pressure 118/79 10/02/17 04:00 O2 Sat by Pulse Oximetry (%) Assessment: 10/02/17 07:51 DETOX COMPLETED,NO WITHDRAWAL SYMPTOM Plan: DISCHARGE TODAY,FOLLOW UP WITH AFTER CARE PROGRAM ARRANGEMENT
--- NOTE | 2017-10-02 07:58 | DS ---
[facility] Detox Discharge Summary Admission Date: 09/27/17 Discharge Date: 10/02/17 - History Present History: Alcohol Dependence, Cocaine Dependence, Opioid Dependence Additional Comments: FOLLOW UP WITH AFTER CARE PROGRAM ARRANGEMENT Pertinent Past History: ASTHMA NICOTINE DEPENDENCE ALOPECIA BY HISTORY - Physical Exam Results Vital Signs: Vital Signs Temperature 97 F L 10/02/17 04:00 Pulse Rate 58 L 10/02/17 04:00 Respiratory Rate 18 10/02/17 04:00 Blood Pressure 118/79 10/02/17 04:00 O2 Sat by Pulse Oximetry (%) Pertinent Admission Physical Exam Findings: WITHDRAWAL SIGN AND SYMPTOM Vital Signs Temperature 97 F L 10/02/17 04:00 Pulse Rate 58 L 10/02/17 04:00 Respiratory Rate 18 10/02/17 04:00 Blood Pressure 118/79 10/02/17 04:00 O2 Sat by Pulse Oximetry (%) Laboratory Last Values WBC 4.5 K/mm3 (4.0-10.0) 09/28/17 08:00 RBC 4.46 M/mm3 (3.60-5.2) 09/28/17 08:00 Hgb 10.6 GM/dL (10.7-15.3) L 09/28/17 08:00 Hct 33.2 % (32.4-45.2) 09/28/17 08:00 MCV 74.4 fl (80-96) L 09/28/17 08:00 MCH 23.7 pg (25.7-33.7) L 09/28/17 08:00 MCHC 31.8 g/dl (32.0-36.0) L 09/28/17 08:00 RDW 14.4 % (11.6-15.6) 09/28/17 08:00 Plt Count 225 K/MM3 (134-434) 09/28/17 08:00 MPV 10.2 fl (7.5-11.1) 09/28/17 08:00 Sodium 141 mmol/L (136-145) 09/28/17 08:00 Potassium 4.1 mmol/L (3.5-5.1) 09/28/17 08:00 Chloride 106 mmol/L (98-107) 09/28/17 08:00 Carbon Dioxide 30 mmol/L (21-32) 09/28/17 08:00 Anion Gap 5 (8-16) L 09/28/17 08:00 BUN 13 mg/dL (7-18) 09/28/17 08:00 Creatinine 0.9 mg/dL (0.55-1.02) 09/28/17 08:00 Creat Clearance w eGFR > 60 (>60) 09/28/17 08:00 Random Glucose 72 mg/dL (74-106) L 09/28/17 08:00 Calcium 9.1 mg/dL (8.5-10.1) 09/28/17 08:00 Total Bilirubin 0.4 mg/dL (0.2-1.0) D 09/28/17 08:00 AST 20 U/L (15-37) 09/28/17 08:00 ALT 17 U/L (12-78) 09/28/17 08:00 Alkaline Phosphatase 81 U/L (45-117) 09/28/17 08:00 Total Protein 7.1 g/dl (6.4-8.2) 09/28/17 08:00 Albumin 3.7 g/dl (3.4-5.0) 09/28/17 08:00 Urine Color Rita 09/27/17 16:00 Urine Appearance Turbid 09/27/17 16:00 Urine pH 5.0 (5.0-8.0) 09/27/17 16:00 Ur Specific [place] 1.023 (1.001-1.035) 09/27/17 16:00 Urine Protein Negative (NEGATIVE) 09/27/17 16:00 Urine Glucose (UA) Negative (NEGATIVE) 09/27/17 16:00 Urine Ketones Negative (NEGATIVE) 09/27/17 16:00 Urine Blood Negative (NEGATIVE) 09/27/17 16:00 Urine Nitrite Negative (NEGATIVE) 09/27/17 16:00 Urine Bilirubin Negative (<2.0 mg/dL) 09/27/17 16:00 Urine Urobilinogen Negative mg/dL (0.2-1.0) 09/27/17 16:00 Ur Leukocyte Esterase Negative (NEGATIVE) 09/27/17 16:00 RPR Titer Nonreactive (NONREACTIVE) 09/28/17 08:00 HIV 1&2 Antibody Screen Negative 09/28/17 08:00 HIV P24 Antigen Negative 09/28/17 08:00 - Treatment Hospital Course: Detox Protocol Followed, Detoxed Safely, Responded well, Discharged Condition Good, Rehab Referral Accepted Patient has Accepted a Rehab Referral to: [facility] - Medication Discharge Medications: Ambulatory Orders Albuterol Sulfate Inhaler - [Ventolin HFA Inhaler -] 2 inh PO Q4H PRN #1 inh Budesonide/Formeterol Fumarate [SYMBICORT 160/4.5mcg -] 1 inh PO BID #1 inhaler 04/22/17 Montelukast Na [Singulair -] 10 mg PO HS #30 tablet 04/22/17 - Diagnosis (1) Opioid dependence with withdrawal Current Visit: Yes Status: Chronic (2) Alcohol dependence with uncomplicated withdrawal Current Visit: Yes Status: Chronic (3) Asthma Current Visit: Yes Status: Chronic (4) Cocaine dependence Current Visit: Yes Status: Chronic (5) Nicotine dependence Current Visit: Yes Status: Chronic Qualifiers: Nicotine product type: cigarettes Substance use status: uncomplicated Qualified Code(s): F17.210 - Nicotine dependence, cigarettes, uncomplicated (6) History of alopecia Current Visit: Yes Status: Acute - AMA Did Patient Leave Against Medical Advice: No
[2017-10-02 09:26] VITALS: BP 112/69; PULSE 75; TEMP 97.7
== END 2017-10-02 09:20 | disposition home or self-care (01) | DRG 773 ==
LOC: YASAS 12:05 → Y6N 14:36
PROVIDERS: ADMIT Internal Medicine; ATTEND Internal Medicine
PROC: HZ2ZZZZ Detoxification Services for Substance Abuse Treatment (ICD-10-PCS; principal; 2017-09-27)
DX: F11.23 Opioid dependence with withdrawal (principal); F10.230 Alcohol dependence with withdrawal, uncomplicated; F14.20 Cocaine dependence, uncomplicated; F17.210 Nicotine dependence, cigarettes, uncomplicated; J45.909 Unspecified asthma, uncomplicated; L65.9 Nonscarring hair loss, unspecified
CPT/HCPCS: 36415; 80053; 81003; 85027; 86593; 87389; 93005; 93010

== ENCOUNTER 2017-10-03 14:33 | Inpatient (IN) | payer OTHER ==
[2017-10-03 17:31] VITALS: BMI 32.9
--- NOTE | 2017-10-03 18:31 | HP ---
[facility] Rehab Assess/Revision - Admission History Admitted to Rehab from: [facility] Date of Admission to Rehab: 10/03/2017 - Vital signs Vital Signs: Vital Signs Period Temp Pulse Resp BP Sys/Hdz Pulse Ox Last 24 Hr 98.6 F 95 21 130/97 - Findings Detox History & Physical reviewed: Yes Concur with findings: Yes (Patient was on suboxoen but relpased to heroin use, was detoxed with meth) Inpatient Rehab Admission - Initial Determination Are CD services needed?: Yes Free of communicable disease: Yes Not in need of hospitalization: Yes - Rehab Admission Criteria Previous failed treatment: Yes Patient is meeting Inpatient Rehab admission criteria:: Yes (would like to rstart MAT withsuboxone but on low dose and eventually d/c )
[2017-10-03] MEDS ORDERED: ALBUTEROL SO4 18 GM HFA INHALER IH PRN (18:33)
[2017-10-03] MEDS ORDERED: MENTHOL/PHENOL 1 EACH UD MM PRN (18:33)
[2017-10-03] MEDS ORDERED: NICOTINE POLACRILEX 2 MG GUM BUC PRN (18:33)
[2017-10-03] MEDS ORDERED: LOPERAMIDE HCL 2 MG CAPSULE PO PRN (18:33)
[2017-10-03] MEDS ORDERED: MAG HYDROX/AL HYDROX/SIMETH 30 ML UNIT-DOSE CUP PO PRN (18:33)
[2017-10-03] MEDS ORDERED: P-EPHED 60MG/TRIPROLIDI 2.5MG TABLET PO PRN (18:33)
[2017-10-03] MEDS ORDERED: ACETAMINOPHEN 325 MG TABLET (FP) PO PRN (18:33)
[2017-10-03] MEDS ORDERED: guaiFENesin/D-METHORPHAN HB 10 ML UNIT-DOSE CUPS PO PRN (18:33)
[2017-10-03] MEDS ORDERED: BUPRENORPHINE/NALOXONE 2 MG/0.5 MG FILM PACKET SL ONE ×2 (19:00→21:56)
[2017-10-03] MEDS ORDERED: cloNIDine HCL 0.1 MG TABLET PO ONE ×2 (19:00→21:58)
[2017-10-03] MEDS: MELATONIN 5 MG TABLETS PO PRN (22:27)
[2017-10-03] MEDS: THIAMINE HCL 100 MG TABLET (FP) PO SCH (22:28)
[2017-10-03] MEDS: MONTELUKAST NA 10 MG TABLET PO SCH (22:28)
[2017-10-03] MEDS: BUDESONIDE/FORMETEROL FUMARATE 160/4.5 mcg INHALER IH SCH (22:30)
[2017-10-03] MEDS: NICOTINE 7 MG/24 HOURS TOPICAL PATCH TD SCH (22:30)
[2017-10-04] MEDS: PRENATAL VITAMINS W/ FOLIC ACID TABLET (FP) PO SCH (09:29)
[2017-10-04] MEDS: NICOTINE 7 MG/24 HOURS TOPICAL PATCH TD SCH (09:29)
[2017-10-04] MEDS: BUPRENORPHINE/NALOXONE 8 MG/2 MG FILM PACKET SL SCH (09:29)
[2017-10-04] MEDS: BUDESONIDE/FORMETEROL FUMARATE 160/4.5 mcg INHALER IH SCH ×2 (10:45→21:38)
--- NOTE | 2017-10-04 14:39 | EKG ---
Test Reason : Blood Pressure : / mmHG Vent. Rate : 090 BPM Atrial Rate : 090 BPM P-R Int : 200 ms QRS Dur : 082 ms QT Int : 370 ms P-R-T Axes : 072 068 063 degrees QTc Int : 452 ms NORMAL SINUS RHYTHM NORMAL ECG WHEN COMPARED WITH ECG OF 27-SEP-2017 15:49, CRITERIA FOR SEPTAL INFARCT ARE NO LONGER PRESENT Confirmed by MD Rashawn, Dean ([id number]) on 10/04/2017 2:39:06 PM Referred By: Confirmed By:Dean Morocho MD
[2017-10-04] MEDS: THIAMINE HCL 100 MG TABLET (FP) PO SCH (21:38)
[2017-10-04] MEDS: MONTELUKAST NA 10 MG TABLET PO SCH (21:38)
[2017-10-05] MEDS: NICOTINE 7 MG/24 HOURS TOPICAL PATCH TD SCH (10:29)
[2017-10-05] MEDS: BUDESONIDE/FORMETEROL FUMARATE 160/4.5 mcg INHALER IH SCH ×2 (10:30→21:36)
[2017-10-05] MEDS: PRENATAL VITAMINS W/ FOLIC ACID TABLET (FP) PO SCH (10:30)
[2017-10-05] MEDS: BUPRENORPHINE/NALOXONE 8 MG/2 MG FILM PACKET SL SCH (10:30)
[2017-10-05] MEDS ORDERED: PT OWN MED DRAWER 7, Y5N ONE (20:37)
[2017-10-05] MEDS: THIAMINE HCL 100 MG TABLET (FP) PO SCH (21:33)
[2017-10-05] MEDS: MELATONIN 5 MG TABLETS PO PRN (21:33)
[2017-10-05] MEDS: MONTELUKAST NA 10 MG TABLET PO SCH (21:33)
[2017-10-06] MEDS: NICOTINE 7 MG/24 HOURS TOPICAL PATCH TD SCH (09:58)
[2017-10-06] MEDS: PRENATAL VITAMINS W/ FOLIC ACID TABLET (FP) PO SCH (09:59)
[2017-10-06] MEDS: BUPRENORPHINE/NALOXONE 8 MG/2 MG FILM PACKET SL SCH (09:59)
[2017-10-06] MEDS: BUDESONIDE/FORMETEROL FUMARATE 160/4.5 mcg INHALER IH SCH ×2 (09:59→21:52)
--- NOTE | 2017-10-06 11:11 | HP ---
Psychiatrist Admission - Data Date of interview: 10/06/17 Admission source: [address] [place] [address] Identifying data: This is the second admission to [address] [place] [address] for this 52 years old single AA female mother of 22 yo daughter, resides with boyfriend,unemployed,supported by PA. Medical History: BA,HTN,Anemia. Psychiatric History: patient reports some sleeping difficulties on and off, reports reaction from Seroquel (drowsy,sleepy). Physical/Sexual Abuse/Trauma History: denies Vital Signs: Vital Signs - 24 hr 10/06/17 10/06/17 10/06/17 00:30 03:30 07:26 Temperature 98.0 F Pulse Rate 60 Respiratory 18 18 18 Rate Blood Pressure 118/79 10/06/17 09:55 Temperature Pulse Rate 78 Respiratory Rate Blood Pressure 105/71 Allergies/Adverse Reactions: Allergies Allergy/AdvReac Type Severity Reaction Status Date / Time No Known Allergies Allergy Verified 10/03/17 17:24 Date of last physical exam: 10/03/17 Concur with the findings of this exam: Yes - Substance Abuse/Tx History Hx Alcohol Use: Yes (reports drinking since 31 yo,beer,then coctails(LI Ice tea) ) Hx Substance Use: Yes (heroin since 22 yo on and of,heavy since 31 yo(sniffing 5 -6 bags daily)) Substance Use Type: Alcohol, Heroin Hx Substance Use Treatment: Yes (completed this program last year) Mental Status Exam - Mental Status Exam Alert and Oriented to: Time, Place, Person Cognitive Function: Grossly Intact Patient Appearance: Well Groomed Mood: Euthymic Affect: Mood Congruent Patient Behavior: Cooperative Speech Pattern: Clear Voice Loudness: Normal Thought Process: Goal Oriented Thought Disorder: Not Present Hallucinations: Denies Suicidal Ideation: Denies Homicidal Ideation: Denies Insight/Judgement: Fair Sleep: Fair Appetite: Fair Muscle strength/Tone: Normal Gait/Station: Normal Psychiatric Findings - Problem List ([place] 1, 2,3) (1) Hypertension Current Visit: Yes Status: Chronic (2) Opioid dependence on agonist therapy Current Visit: Yes Status: Chronic (3) Substance-induced sleep disorder Current Visit: Yes Status: Chronic (4) Anemia Current Visit: Yes Status: Chronic (5) Asthma Current Visit: Yes Status: Chronic (6) Cocaine dependence Current Visit: Yes Status: Chronic (7) Nicotine dependence Current Visit: Yes Status: Chronic Qualifiers: - Initial Treatment Plan Initial Treatment Plan: Melatonin 5 mg po hs.Will monitor progress.
[2017-10-06] MEDS ORDERED: PT OWN MED DRAWER 7, Y5N ONE (19:44)
[2017-10-06] MEDS: THIAMINE HCL 100 MG TABLET (FP) PO SCH (21:51)
[2017-10-06] MEDS: MONTELUKAST NA 10 MG TABLET PO SCH (21:51)
[2017-10-06] MEDS: MELATONIN 5 MG TABLETS PO PRN (21:52)
[2017-10-07] MEDS: PRENATAL VITAMINS W/ FOLIC ACID TABLET (FP) PO SCH (10:16)
[2017-10-07] MEDS: BUPRENORPHINE/NALOXONE 8 MG/2 MG FILM PACKET SL SCH (10:16)
[2017-10-07] MEDS: BUDESONIDE/FORMETEROL FUMARATE 160/4.5 mcg INHALER IH SCH ×2 (10:16→21:50)
[2017-10-07] MEDS: NICOTINE 7 MG/24 HOURS TOPICAL PATCH TD SCH (10:16)
[2017-10-07] MEDS: MAGNESIUM HYDROX 2400MG/30ML ORAL SUSPENSION 30 ML CUP PO PRN (14:33)
[2017-10-07] MEDS: MONTELUKAST NA 10 MG TABLET PO SCH (21:49)
[2017-10-07] MEDS: THIAMINE HCL 100 MG TABLET (FP) PO SCH (21:49)
[2017-10-07] MEDS: MELATONIN 5 MG TABLETS PO PRN (21:50)
[2017-10-08] MEDS ORDERED: PT OWN MED DRAWER 7, Y5N ONE (08:54)
[2017-10-08] MEDS: BUDESONIDE/FORMETEROL FUMARATE 160/4.5 mcg INHALER IH SCH ×2 (10:24→21:40)
[2017-10-08] MEDS: PRENATAL VITAMINS W/ FOLIC ACID TABLET (FP) PO SCH (10:24)
[2017-10-08] MEDS: BUPRENORPHINE/NALOXONE 8 MG/2 MG FILM PACKET SL SCH (10:24)
[2017-10-08] MEDS: NICOTINE 7 MG/24 HOURS TOPICAL PATCH TD SCH (10:25)
[2017-10-08] MEDS: MAGNESIUM CITRATE 300 ML BOTTLE PO PRN (10:42)
[2017-10-08] MEDS: THIAMINE HCL 100 MG TABLET (FP) PO SCH (21:40)
[2017-10-08] MEDS: MONTELUKAST NA 10 MG TABLET PO SCH (21:40)
[2017-10-08] MEDS: MELATONIN 5 MG TABLETS PO PRN (21:40)
[2017-10-09] MEDS: BUDESONIDE/FORMETEROL FUMARATE 160/4.5 mcg INHALER IH SCH ×2 (10:28→22:05)
[2017-10-09] MEDS: PRENATAL VITAMINS W/ FOLIC ACID TABLET (FP) PO SCH (10:29)
[2017-10-09] MEDS: NICOTINE 7 MG/24 HOURS TOPICAL PATCH TD SCH (10:29)
[2017-10-09] MEDS: BUPRENORPHINE/NALOXONE 8 MG/2 MG FILM PACKET SL SCH (10:29)
[2017-10-09] MEDS: MONTELUKAST NA 10 MG TABLET PO SCH (22:04)
[2017-10-09] MEDS: THIAMINE HCL 100 MG TABLET (FP) PO SCH (22:04)
[2017-10-09] MEDS: MELATONIN 5 MG TABLETS PO PRN (22:05)
[2017-10-10] MEDS: BUPRENORPHINE/NALOXONE 8 MG/2 MG FILM PACKET SL SCH (10:57)
[2017-10-10] MEDS: BUDESONIDE/FORMETEROL FUMARATE 160/4.5 mcg INHALER IH SCH ×2 (10:59→22:15)
[2017-10-10] MEDS: NICOTINE 7 MG/24 HOURS TOPICAL PATCH TD SCH (10:59)
[2017-10-10] MEDS: PRENATAL VITAMINS W/ FOLIC ACID TABLET (FP) PO SCH (10:59)
[2017-10-10] MEDS ORDERED: PT OWN MED DRAWER 7, Y5N ONE (19:52)
[2017-10-10] MEDS: IBUPROFEN 400 MG TABLET (FP) PO PRN (20:08)
[2017-10-10] MEDS: hydrOXYzine PAMOATE 50 MG CAPSULE (FP) PO PRN (20:08)
[2017-10-10] MEDS: MONTELUKAST NA 10 MG TABLET PO SCH (22:15)
[2017-10-10] MEDS: THIAMINE HCL 100 MG TABLET (FP) PO SCH (22:15)
[2017-10-10] MEDS: MELATONIN 5 MG TABLETS PO PRN (22:18)
[2017-10-11] MEDS: BUDESONIDE/FORMETEROL FUMARATE 160/4.5 mcg INHALER IH SCH ×2 (10:38→22:08)
[2017-10-11] MEDS: PRENATAL VITAMINS W/ FOLIC ACID TABLET (FP) PO SCH (10:38)
[2017-10-11] MEDS: NICOTINE 7 MG/24 HOURS TOPICAL PATCH TD SCH (10:38)
[2017-10-11] MEDS: BUPRENORPHINE/NALOXONE 8 MG/2 MG FILM PACKET SL SCH (10:39)
[2017-10-11] MEDS: hydrOXYzine PAMOATE 50 MG CAPSULE (FP) PO PRN (15:47)
[2017-10-11] MEDS: MELATONIN 5 MG TABLETS PO PRN (22:08)
[2017-10-11] MEDS: THIAMINE HCL 100 MG TABLET (FP) PO SCH (22:08)
[2017-10-11] MEDS: MONTELUKAST NA 10 MG TABLET PO SCH (22:08)
[2017-10-12] MEDS: BUPRENORPHINE/NALOXONE 8 MG/2 MG FILM PACKET SL SCH (10:37)
[2017-10-12] MEDS: BUDESONIDE/FORMETEROL FUMARATE 160/4.5 mcg INHALER IH SCH ×2 (10:37→21:57)
[2017-10-12] MEDS: PRENATAL VITAMINS W/ FOLIC ACID TABLET (FP) PO SCH (10:37)
[2017-10-12] MEDS: NICOTINE 7 MG/24 HOURS TOPICAL PATCH TD SCH (10:37)
[2017-10-12] MEDS: IBUPROFEN 400 MG TABLET (FP) PO PRN (17:26)
[2017-10-12] MEDS: hydrOXYzine PAMOATE 50 MG CAPSULE (FP) PO PRN (17:27)
[2017-10-12] MEDS: THIAMINE HCL 100 MG TABLET (FP) PO SCH (21:56)
[2017-10-12] MEDS: MELATONIN 5 MG TABLETS PO PRN (21:57)
[2017-10-12] MEDS: MONTELUKAST NA 10 MG TABLET PO SCH (21:58)
[2017-10-13] MEDS: MAGNESIUM HYDROX 2400MG/30ML ORAL SUSPENSION 30 ML CUP PO PRN (06:04)
[2017-10-13] MEDS: BUDESONIDE/FORMETEROL FUMARATE 160/4.5 mcg INHALER IH SCH ×2 (10:30→21:50)
[2017-10-13] MEDS: BUPRENORPHINE/NALOXONE 8 MG/2 MG FILM PACKET SL SCH (10:30)
[2017-10-13] MEDS: PRENATAL VITAMINS W/ FOLIC ACID TABLET (FP) PO SCH (10:30)
[2017-10-13] MEDS: NICOTINE 7 MG/24 HOURS TOPICAL PATCH TD SCH (10:31)
[2017-10-13] MEDS: MAGNESIUM CITRATE 300 ML BOTTLE PO PRN (12:26)
[2017-10-13] MEDS: MONTELUKAST NA 10 MG TABLET PO SCH (21:50)
[2017-10-13] MEDS: THIAMINE HCL 100 MG TABLET (FP) PO SCH (21:50)
[2017-10-13] MEDS: hydrOXYzine PAMOATE 50 MG CAPSULE (FP) PO PRN (21:50)
[2017-10-14] MEDS ORDERED: PT OWN MED DRAWER 7, Y5N ONE ×2 (08:58→21:55)
[2017-10-14] MEDS: PRENATAL VITAMINS W/ FOLIC ACID TABLET (FP) PO SCH (11:08)
[2017-10-14] MEDS: NICOTINE 7 MG/24 HOURS TOPICAL PATCH TD SCH (11:08)
[2017-10-14] MEDS: BUPRENORPHINE/NALOXONE 8 MG/2 MG FILM PACKET SL SCH (11:08)
[2017-10-14] MEDS: BUDESONIDE/FORMETEROL FUMARATE 160/4.5 mcg INHALER IH SCH ×2 (11:09→21:44)
[2017-10-14] MEDS: hydrOXYzine PAMOATE 50 MG CAPSULE (FP) PO PRN ×2 (15:17→21:44)
[2017-10-14] MEDS: MONTELUKAST NA 10 MG TABLET PO SCH (21:44)
[2017-10-14] MEDS: MELATONIN 5 MG TABLETS PO PRN (21:44)
[2017-10-14] MEDS: THIAMINE HCL 100 MG TABLET (FP) PO SCH (21:44)
[2017-10-15] MEDS: NICOTINE 7 MG/24 HOURS TOPICAL PATCH TD SCH (10:22)
[2017-10-15] MEDS: BUDESONIDE/FORMETEROL FUMARATE 160/4.5 mcg INHALER IH SCH ×2 (10:23→21:55)
[2017-10-15] MEDS: PRENATAL VITAMINS W/ FOLIC ACID TABLET (FP) PO SCH (10:23)
[2017-10-15] MEDS: BUPRENORPHINE/NALOXONE 8 MG/2 MG FILM PACKET SL SCH (10:24)
[2017-10-15] MEDS: hydrOXYzine PAMOATE 50 MG CAPSULE (FP) PO PRN ×2 (13:24→21:55)
[2017-10-15] MEDS: MONTELUKAST NA 10 MG TABLET PO SCH (21:54)
[2017-10-15] MEDS: MELATONIN 5 MG TABLETS PO PRN (21:54)
[2017-10-15] MEDS: THIAMINE HCL 100 MG TABLET (FP) PO SCH (21:55)
[2017-10-16] MEDS: NICOTINE 7 MG/24 HOURS TOPICAL PATCH TD SCH (10:33)
[2017-10-16] MEDS: BUDESONIDE/FORMETEROL FUMARATE 160/4.5 mcg INHALER IH SCH ×2 (10:33→21:51)
[2017-10-16] MEDS: PRENATAL VITAMINS W/ FOLIC ACID TABLET (FP) PO SCH (10:33)
[2017-10-16] MEDS: BUPRENORPHINE/NALOXONE 8 MG/2 MG FILM PACKET SL SCH (10:33)
--- NOTE | 2017-10-16 15:11 | PN ---
[facility] Progress Note Note: Vital Signs Temperature 98.4 F 10/16/17 07:23 Pulse Rate 65 10/16/17 07:23 Respiratory Rate 18 10/16/17 07:23 Blood Pressure 115/77 10/16/17 07:23 O2 Sat by Pulse Oximetry (%) Patient will be d/c from rehab tomorrow. Will attend [facility] to continue her care. Patient reports she will not need rx for suboxone upon d/c. She reports she has medications at home and in her property and will follow up with her doctor.
[2017-10-16] MEDS: hydrOXYzine PAMOATE 50 MG CAPSULE (FP) PO PRN (19:16)
[2017-10-16] MEDS: MONTELUKAST NA 10 MG TABLET PO SCH (21:49)
[2017-10-16] MEDS: THIAMINE HCL 100 MG TABLET (FP) PO SCH (21:49)
[2017-10-16] MEDS: MELATONIN 5 MG TABLETS PO PRN (21:51)
[2017-10-17 07:35] VITALS: BP 122/80; PULSE 63; TEMP 97.7
--- NOTE | 2017-10-17 09:59 | PN ---
Psychiatric Progress Note Vital Signs: Vital Signs Period Temp Pulse Resp BP Sys/Hdz Pulse Ox Last 24 Hr 97.7 F 63 18-18 122/80 Date of Session: 10/17/17 Chief Complaint:: Discharge visit HPI: Patient addressed Opioid ,Cociane dependence comorbid with Substance induced mood/sleep disorder. ROS: Significant for HTN,Anemia,BA. Current Medications: Active Medications Generic Name Dose Route Start Last Admin Trade Name Freq PRN Reason Stop Dose Admin Acetaminophen 650 mg 10/03/17 18:33 10/13/17 21:52 Tylenol - PO 650 mg Q4H PRN Administration FEVER Al Hydroxide/Mg Hydroxide 30 ml 10/03/17 18:33 Mylanta Oral Suspension - PO Q6H PRN DYSPEPSIA Albuterol Sulfate 2 puff 10/03/17 18:33 Ventolin Hfa Inhaler - IH Q4H PRN ASTHMA Budesonide/Formoterol Fumarate 1 puff 10/03/17 22:00 10/16/17 21:51 Symbicort 160/4.5mcg - IH 1 puff BID RADHA Administration Buprenorphine/Naloxone 1 each 10/04/17 10:00 10/16/17 10:33 Suboxone 8mg/2mg Sl Film - SL 1 each DAILY RADHA Administration Eucalyptus/Menthol/Phenol/Sorbitol 1 each 10/03/17 18:33 Cepastat Lozenge - MM Q4H PRN SORE THROAT Guaifenesin 10 ml 10/03/17 18:33 Robitussin Dm - PO Q6H PRN COUGH Hydroxyzine Pamoate 50 mg 10/03/17 18:33 10/16/17 19:16 Vistaril - PO 50 mg Q4H PRN Administration AGITATION Ibuprofen 400 mg 10/03/17 18:33 10/12/17 17:26 Motrin - PO 400 mg Q6H PRN Administration Pain Level 4-6 Loperamide HCl 4 mg 10/03/17 18:33 Imodium - PO Q6H PRN DIARRHEA Magnesium Hydroxide 30 ml 10/03/17 18:33 10/13/17 06:04 Milk Of Magnesia - PO 30 ml DAILY PRN Administration CONSTIPATION Melatonin 5 mg 10/03/17 22:00 10/16/17 21:51 Melatonin PO 5 mg HS PRN Administration INSOMNIA Montelukast Sodium 10 mg 10/03/17 22:00 10/16/17 21:49 Singulair - PO 10 mg HS RADHA Administration Nicotine 7 mg 10/03/17 19:00 10/16/17 10:33 Nicoderm Patch - TD Not Given DAILY RADHA Nicotine Polacrilex 2 mg 10/03/17 18:33 Nicorette Gum - BUC Q2H PRN NICOTINE REPLACEMENT RX Multivit/Folic Acid/Iron 1 tab 10/04/17 10:00 10/16/17 10:33 Vitamins (Sjr) - PO 1 tab DAILY RADHA Administration Pseudoephedrine/Triprolidine 1 combo 10/03/17 18:33 Actifed - PO TID PRN NASAL CONGESTION Thiamine HCl 100 mg 10/03/17 22:00 10/16/17 21:49 Vitamin B1 - PO 100 mg HS RADHA Administration Current Side Effect: No Lab tests ordered: No Lab tests reviewed: Yes Provider note:: Patient completed this program today .She has met her treatment goals and will continue to address her issues on outpatient basis at [facility].Patient identifies areas of difficulties.She focuses on insights gained in treatment including changing of attitude and ways she plans to utilize coping skills,supports to maintain recovery. Patient is stable for discharge today. Total face to face time:: 25 Mental Status Exam - Mental Status Exam Alert and Oriented to: Time, Place, Person Cognitive Function: Grossly Intact Patient Appearance: Well Groomed Mood: Hopeful, Euthymic Affect: Appropriate, Mood Congruent Patient Behavior: Cooperative Speech Pattern: Clear Voice Loudness: Normal Thought Process: Goal Oriented Thought Disorder: Not Present Hallucinations: Denies Suicidal Ideation: Denies Homicidal Ideation: Denies Insight/Judgement: Fair Sleep: Fair Appetite: Good Muscle strength/Tone: Normal Gait/Station: Normal Psychiatric Treatment Plan - Problem List (1) Hypertension Current Visit: Yes (2) Opioid dependence on agonist therapy Current Visit: Yes (3) Substance-induced sleep disorder Current Visit: Yes (4) Anemia Current Visit: Yes (5) Asthma Current Visit: Yes (6) Cocaine dependence Current Visit: Yes (7) Nicotine dependence Current Visit: Yes Qualifiers:
[2017-10-17] MEDS: BUPRENORPHINE/NALOXONE 8 MG/2 MG FILM PACKET SL SCH (10:02)
[2017-10-17] MEDS ORDERED: PT OWN MED DRAWER 7, Y5N ONE (10:02)
[2017-10-17] MEDS: BUDESONIDE/FORMETEROL FUMARATE 160/4.5 mcg INHALER IH SCH (10:03)
[2017-10-17] MEDS: NICOTINE 7 MG/24 HOURS TOPICAL PATCH TD SCH (10:04)
[2017-10-17] MEDS: PRENATAL VITAMINS W/ FOLIC ACID TABLET (FP) PO SCH (10:04)
== END 2017-10-17 10:14 | disposition home or self-care (01) | DRG 772 ==
LOC: YASAS 14:33 → Y3E 17:23
PROVIDERS: ADMIT Psychiatry & Neurology Psychiatry; ATTEND Psychiatry & Neurology Psychiatry
PROC: HZ51ZZZ Individual Psychotherapy for Substance Abuse Treatment, Behavioral (ICD-10-PCS; principal; 2017-10-03)
DX: F11.23 Opioid dependence with withdrawal (principal); F14.20 Cocaine dependence, uncomplicated; F17.210 Nicotine dependence, cigarettes, uncomplicated; F19.282 Other psychoactive substance dependence with psychoactive substance-induced sleep disorder; D64.9 Anemia, unspecified; I10 Essential (primary) hypertension; J45.909 Unspecified asthma, uncomplicated; L65.9 Nonscarring hair loss, unspecified
CPT/HCPCS: 93005; 93010; J0735